=== PATIENT | male | born 1965 | race Caucasian/White ===

== ENCOUNTER 2018-11-23 00:42 | Emergency (ER) | payer BC, OTHER ==
[2018-11-23] MEDS: METHYLPREDNISOLONE 125 MG INJ IM (02:15)
[2018-11-23] MEDS: ACETAMINOPHEN 325 MG TAB PO (02:15)
[2018-11-23 02:32] LABS: TROPONIN-I < 0.012 ng/ml (0.000-0.120)
[2018-11-23] MEDS ORDERED: HYDROCODONE/APAP (5/325) TAB PO (03:30)
== END 2018-11-23 03:33 | disposition home or self-care (01) ==
LOC: FTE 00:42
DX: M54.2 Cervicalgia (principal)
CPT/HCPCS: 72040; 84484; 93005; 96372; 99284-25